=== PATIENT | female | born 1950 | race African-American/Black ===

== ENCOUNTER 2017-02-07 19:11 | Observation (INO) | payer OTHER ==
[~2017-02-07] VITALS: Ht 165.1 cm; Wt 102.0 kg
--- NOTE | ~2017-02-07 | CT71 ---
[facility] A Service of [facility] RADIOLOGY TEXT RESULTS PATIENT: GINA DOAN LOCATION: C3A 308-01 : 51 UNIT #: [id number] AGE: [address]: Jessica Knutson MD SEX: F ORDER DR: [id number] [facility] [address]. [place], [place] [address] [id number] MR#: [id number] Acc #: [id number] NAME: GINA DOAN : 1950 SEX: F STUDY DATE/TIME: 02/07/2017 22:56 UNIT: [facility] ROOM: STUDY DESCRIPTION: CT Head Wo Contrast Attending Physician: Angelo Gross M.D. Referring Physician: Trang Aaron Ordering Physician: Angelo Gross M.D. Primary Care Physician: Trang Aaron MEDICAL IMAGING REPORT This report is preliminary unless electronic signature is present EXAMINATION Noncontrast CT head. DATE 02/07/2017 HISTORY 66-year-old female with complains of dizziness, lightheadedness, unsteady gait and blurred vision since [address] exam was performed with one or more of the following radiation dose reduction techniques: automatic exposure control, adjustment of mA and/or kV according to patient size, and iterative reconstruction. FINDINGS No acute intracranial hemorrhage, mass lesion or mass effect or midline shift is seen and there is no CT evidence of acute or evolving infarct. Britton matter - white matter junction distinction appears preserved. Ventricular configuration is within normal limits. No acute displaced calvarial fracture is seen and the major paranasal sinuses and mastoid air cells appear clear. IMPRESSION Normal noncontrast CT head. Dictated by... Ariane Albarran M.D. THIS IS AN ELECTRONICALLY VERIFIED REPORT Ariane Albarran M.D. at 02/08/2017 9:56 PM [facility]t [facility] A Service of [facility] RADIOLOGY TEXT RESULTS PATIENT: GINA DOAN LOCATION: C3A 308-01 : 51 UNIT #: [id number] AGE: [address]: Jessica Knutson MD SEX: F ORDER DR: TD: 02/08/2017 00:00 JOB #: [id number] MEDICAL IMAGING REPORT Page 1 of 1 COPY
--- NOTE | ~2017-02-07 | EKG ---
PATIENT: GINA DOAN UNIT #: [id number] Ventricular Rate: 55 BPM Atrial Rate: 55 BPM P-R Interval: 136 ms QRS Duration: 96 ms Q-T Interval: 446 ms QTC Calculation(Bezet): 426 ms P [place]: 62 degrees Calculated R [place]: -15 degrees Calculated T [place]: -7 degrees Diagnosis Line: Sinus bradycardia Diagnosis Line: Otherwise normal ECG Diagnosis Line: No previous ECGs available Diagnosis Line: Confirmed by JEN ALLEN MD ([id number]) on 02/08/2017 Diagnosis Line: 7:39:18 PM INTERPRETING MD: TIFFANY MARQUES
--- NOTE | ~2017-02-07 | HP ---
Unit #: [id number] #: [id number] Patient: GINA DOAN [id number] [address] [place], [place] [address] [id number] I MR#: [id number] NAME: GINA DOAN ROOM: [facility] Age: 66 Sex: F Admission Date: 02/08/2017 : 1950 Attending Physician: Marielos Pollard M.D. Referring Physician: Trang Aaron Primary Care Physician: Trang Aaron HISTORY AND PHYSICAL CHIEF COMPLAINT Imbalance. HISTORY This very pleasant 66-year-old female with hypertension, hyperlipidemia, is admitted for imbalance. The patient was in her usual state of health until 2:00 yesterday afternoon. The patient felt "woozy," and she stumbled. She then began to feel imbalance. [place] more fatigued than usual and family thought that she had slurred speech. She denies unilateral weakness, numbness, similar symptoms in the past, or headaches. No recent URI, tinnitus, change in her hearing. She did, however, state that her vision seemed to be a bit blurred. She presented to this emergency department at 7:15 p.m. last evening with stable vital signs. She was given Antivert 25 mg p.o. and a liter of saline without improvement of her symptoms. CTA of the head and neck are negative as is a CT of the brain. The patient's neurologic examination at this time is normal although she does experience subjective imbalance when seated. PAST MEDICAL HISTORY 1. Essential hypertension. 2. Asthma. 3. Hyperlipidemia. 4. Muscle cramps, on Neurontin. 5. Recent admission to [facility] in December for chest pain. The patient reports a stress test was performed. 6. Right total knee replacement. 7. Left foot surgery. 8. Carpal tunnel release. 9. BTL. ALLERGIES Codeine. HOME MEDICATIONS 1. Albuterol as needed. 2. Aspirin 325 mg daily. 3. Vitamin D3. 4. The patient did take one dose of Diflucan yesterday. 5. Neurontin 300 mg t.i.d. 6. Dyazide once a day. 7. Toprol XL 25 mg daily. 8. Crestor 20 mg daily. Unit #: [id number] #: [id number] Patient: GINA DOAN 9. Selenium lotion. 10. Belsomra 10 mg q. h.s. 11. Ultram 50 mg q.4 hours as needed. FAMILY HISTORY TIA and CVA. SOCIAL HISTORY The patient lives with her three grandchildren. She stopped smoking about 47 years ago, seldom drinks alcohol. REVIEW OF SYSTEMS Notable for imbalance, blurred vision, hypertension, asthma, hyperlipidemia, muscle spasms and above mentioned surgeries. All other systems were reviewed and are negative. PHYSICAL EXAMINATION GENERAL APPEARANCE: Very pleasant 66-year-old, moderately obese female, who currently is in no acute distress. VITAL SIGNS: Temperature 97.6, pulse 60, respirations 18, blood pressure 145/80, O2 saturation 99% on room air. HEENT: Eyes PERRLA. Extraocular muscles are intact. TMs are clear. Pharynx is benign. NECK: Supple without adenopathy, thyromegaly or carotid bruits. CHEST: Clear. CARDIAC: Normal S1 and S2 without murmur. ABDOMEN: Bowel sounds are present. No hepatosplenomegaly, tenderness or masses. EXTREMITIES: Without edema. Pedal pulses are present. No ulcers on the feet. NEUROLOGIC EXAM: The patient is awake, alert, oriented. Her speech is fluent. Her cranial nerves are intact. She has +5 out of 5 strength throughout. Normal rapid alternating movements. Normal mockru-ao-rtun. Negative pronator drift. She can sit up without assistance. DIAGNOSTIC STUDIES LABORATORY: Admission labs - hematocrit is 39. Normal white count, platelet count and coags. SMA-12 normal although her GFR is 59.1. Potassium is 3.3, protein 8.5. Urinalysis is negative. IMAGING: CTA of the head and neck negative. CT of the brain is negative. CARDIOVASCULAR: EKG shows a sinus bradycardia, rate 55, left axis deviation. ASSESSMENT 1. Imbalance, rule out inner ear pathology versus central etiology. 2. Essential hypertension. 3. Hyperlipidemia. 4. Stable asthma. 5. Hypokalemia, on Dyazide. PLANS Unit #: [id number] #: [id number] Patient: GINA DOAN 1. MRI of the brain. 2. P.r.n. Ativan as Antivert did not help. 3. Obtain recent records from [facility]. 4. Replace potassium. 5. Further plans depending on MRI scan results. Dictated by Marielos Pollard M.D. AML/df TD: 02/08/2017 05:17 JOB #: [id number] CC: Amanda Stone M.D. HISTORY AND PHYSICAL Page 1 of 1 X Marielos Pollard MD X HISTORY AND PHYSICAL
--- NOTE | ~2017-02-07 | CT17 ---
[facility] A Service of [facility] & [facility] RADIOLOGY TEXT RESULTS PATIENT: GINA DOAN LOCATION: [facility] 308-01 : 51 UNIT #: [id number] AGE: [address]: Jessica Knutson MD SEX: F ORDER DR: [id number] [facility] [address] [place], [place] [address] [id number] I MR#: [id number] Acc #: [id number] NAME: GINA DOAN : 1950 SEX: F STUDY DATE/TIME: 02/07/2017 23:03 UNIT: [address] ROOM: 308 STUDY DESCRIPTION: CT Angio Head Attending Physician: Marielos Pollard M.D. Referring Physician: Trang Aaron Ordering Physician: Angelo Gross M.D. Primary Care Physician: Trang Aaron MEDICAL IMAGING REPORT This report is preliminary unless electronic signature is present EXAM CT angiogram head and neck. HISTORY 66-year-old female complaining of lightheadedness, dizziness, gait unsteadiness, blurred vision since 14:00 today. Preliminary wet reading provided by Dr. Albarran at 0:28 217.-17. COM[address] angiography of the head and neck vessels performed during intravenous administration of 100 mL of Isovue-370. Imaging acquired in the axial plane followed by multiple reconstructed and reformatted images for purpose of 3-D CT angiography of the head and neck vessels. The CT exam was performed with one or more of the following radiation dose reduction techniques: automatic exposure control, adjustment of mA and/or kV according to patient size, and iterative reconstruction. Comparison is made to an earlier head CT from the same day. CT angiogram Neck: The aortic arch branch pattern is normal. Small amount of atherosclerotic vascular calcifications seen but there is no hemodynamically-significant narrowing suspected great vessel origins. Assessment right carotid system shows plaque at the right carotid bifurcation largely noncalcified with mild disease in the distal right common and involving the origin of the right external carotid artery. By NASCET criteria there is essentially 0% diameter stenosis. There is probably hemodynamically-significant narrowing at the origin of the external carotid artery. The siphon appears to be widely patent. Assessment of the left carotid system shows partially calcified plaque at [facility] A Service of [facility] RADIOLOGY TEXT RESULTS PATIENT: GINA DOAN LOCATION: C3A PC 308-01 : 51 UNIT #: [id number] AGE: [address]: Jessica Knutson MD SEX: F ORDER DR: the left carotid bifurcation. This involves the distal common and extends into the proximal external with mild narrowing of the external. By NASCET criteria probably 0% diameter stenosis left internal carotid artery. The left carotid siphons widely patent. The right vertebral artery is not well seen proximally secondary to artifact. It is otherwise patent in the neck and supplies the basilar. The left vertebral artery is also not well seen proximally. It is otherwise patent in the neck and supplies the basilar. There are right is slightly dominant. The region of intracranial circulation shows origin to the right posterior cerebral artery distribution. No intracranial vascular cutoff is suspected. The right side P1 vessel is probably quite hypoplastic with a small infundibulum at its origin. There is a tiny anterior communicating artery present. There is probably a tiny left posterior communicator present. The dural venous sinuses are grossly patent. No definite intracranial aneurysm allowing for the technical limitations CT angiography in general. There is an abnormal appearance to the right side aryepiglottic folds. It is abnormally thickened with a somewhat nodular configuration and this is quite worrisome for neoplastic disease. It should be further evaluated by ENT with direct visualization. The area of interest is about 1.4 x 0.9 cm dimension. Findings called by myself during this dictation to service. Study is not timed to assess adenopathy well in the neck. If more staging information is needed the patient might benefit from PET/CT if the mass appears to be a malignancy. There are degenerative changes in the cervical spine. There is a lesion in the inferior left lobe of the thyroid gland about 1.7 cm dimension low in attenuation. Recommend correlation with a followup thyroid ultrasound for better characterization. IMPRESSION 1. There is a mass-like lesion involving the right side aryepiglottic fold. I would recommend correlation with direct visualization at this time to evaluate for possibility of mucosal mass. 2. By NASCET criteria essentially 0% stenosis at either carotid bifurcation. Both vertebral arteries are patent with the right being slightly dominant. Proximal vertebral arteries are partly obscured by artifact. 3. There is no intracranial vascular cutoff or focal central stenosis. There is origin to the right posterior cerebral artery distribution and I believe the right P1 vessel is very hypoplastic. 4. Lesion in the inferior left lobe of the thyroid gland is nonspecific and should be characterized with an nonemergent thyroid ultrasound. I spoke to the hospitalist within the half hour. [facility] A Service of [facility] RADIOLOGY TEXT RESULTS PATIENT: GINA DOAN LOCATION: C3A 308-01 : 51 UNIT #: [id number] AGE: [address]: Jessica Knutson MD SEX: F ORDER DR: Dictated by... Yumiko Manuel M.D. THIS IS AN ELECTRONICALLY VERIFIED REPORT Yumiko Manuel M.D. at 02/08/2017 9:56 AM OLIVE/chad TD: 02/08/2017 07:38 JOB #: [id number] MEDICAL IMAGING REPORT Page 1 of 1 COPY
--- NOTE | ~2017-02-07 | CR72 ---
[facility] A Service of [facility] RADIOLOGY TEXT RESULTS PATIENT: GINA DOAN LOCATION: C3A 308 : 51 UNIT #: [id number] AGE: [address]: Jessica Knutson MD SEX: F ORDER DR: [id number] [id number] [place], [place] [address] [id number] E MR#: [id number] Acc #: [id number] NAME: GINA DOAN : 1950 SEX: F STUDY DATE/TIME: 02/07/2017 22:23 UNIT: [facility] ROOM: STUDY DESCRIPTION: CR Chest Single View Portable Attending Physician: Angelo Gross M.D. Referring Physician: Trang Aaron Ordering Physician: Angelo Gross M.D. Primary Care Physician: Trang Aaron MEDICAL IMAGING REPORT This report is preliminary unless electronic signature is present EXAMINATION AP portable chest. DATE 02/07/2017 HISTORY 66-year-old female with complaints of dizziness, weakness and shortness of breath today. Hypertension. COMPARISON AP portable chest 12/21/2016. FINDINGS There is a stable borderline cardiac enlargement. The lungs appear clear. Pulmonary vascular distribution is normal. No pleural effusion or pneumothorax. IMPRESSION 1. Stable borderline cardiac enlargement. No acute chest findings. Dictated by... Ariane Albarran M.D. THIS IS AN ELECTRONICALLY VERIFIED REPORT Ariane Albarran M.D. at 02/08/2017 9:56 PM LOCO/emmanuel TD: 02/07/2017 23:52 JOB #: [id number] MEDICAL IMAGING REPORT [facility] A Service of [facility] RADIOLOGY TEXT RESULTS PATIENT: GINA DOAN LOCATION: C3A 308- : 51 UNIT #: [id number] AGE: [address]: Jessica Knutson MD SEX: F ORDER DR: Page 1 of 1 COPY
--- NOTE | ~2017-02-07 | MR17 ---
[facility] A Service of [facility] RADIOLOGY TEXT RESULTS PATIENT: GINA DOAN LOCATION: C3A 308- : 52 UNIT #: [id number] AGE: [address]: Jessica Knutson MD SEX: F ORDER DR: [id number] [facility] [address]. [place], [place] [address] [id number] I MR#: [id number] Acc #: [id number] NAME: GINA DOAN : 1950 SEX: F STUDY DATE/TIME: 02/08/2017 12:24 [facility] RO[facility]: [facility] STUDY DESCRIPTION: MR Brain WWo Contrast Attending Physician: Jessica Knutson M.D. Referring Physician: Trang Aaron Ordering Physician: Marielos Pollard M.D. Primary Care Physician: Trang Aaron MRI CENTER REPORT This report is preliminary unless electronic signature is present. EXAM Brain MRI with and without contrast DATE OF STUDY 02/08/2017 PROCEDURE Routine unenhanced brain MRI COMPARISON Head CT dated 02/07/2017 CLINICAL HISTORY Lightheadedness, dizziness, unsteady gait and blurred vision for 24 hours. FINDINGS There is no MR evidence of acute ischemia or other restricted diffusion. There is no evidence of intracranial hemorrhage or hydrocephalus or extraaxial fluid collection. There are nonspecific white matter changes. Brain is structurally normal; brain parenchymal signal is otherwise normal. Normal flow voids are seen in the cerebral vessels. Bone marrow signal is normal. Postcontrast images show no mass or abnormal enhancement. IMPRESSION Minimal nonspecific white matter change, doubtful clinical significance. Otherwise normal brain MRI with and without contrast. Dictated by... Cornel Dubon M.D. THIS IS AN ELECTRONICALLY VERIFIED REPORT Cornel Dubon M.D. at 02/09/2017 11:49 AM [facility] A Service of [facility] RADIOLOGY TEXT RESULTS PATIENT: GINA DOAN LOCATION: [facility] 308-01 : 51 UNIT #: [id number] AGE: [address]: Jessica Knutson MD SEX: F ORDER DR: BONNIE/alcon TD: 02/08/2017 15:18 JOB #: [id number] MRI CENTER REPORT Page 1 of 1 COPY
--- NOTE | ~2017-02-07 | DS ---
Unit #: [id number] #: [id number] Patient: GINA DOAN [id number] [address] [place], [place] [address] [id number] I MR#: [id number] NAME: GINA DOAN ROOM: [facility] Age: 66 Sex: F Admission Date: 02/08/2017 : 1950 Discharge Date: 02/08/2017 Attending Physician: Jessica Knutson M.D. Referring Physician: Trang Aaron Primary Care Physician: Trang Aaron DISCHARGE SUMMARY PRIMARY CARE PROVIDER Dr. Stone PRINCIPAL DIAGNOSES 1. Acute labyrinthitis. 2. Allergic rhinitis with associated serous effusion of the right ear. 3. Epiglottic mass. 4. Asymptomatic bradycardia with heart rate in the high 50s. 5. Hypertension. 6. Hyperglycemia with pending hemoglobin A1c. 7. Peripheral neuropathy. 8. Insomnia. 9. Gastroesophageal reflux disease. 10. Hyperlipidemia. 11. Obesity. 12. Left thyroid nodule. CONSULTANTS None. PROCEDURES 1. MRI of the brain with chronic ischemic changes of the white matter, no other acute findings. 2. Chest x-ray on February 07, 2017, with mild cardiomegaly, no other acute findings. 3. CT of the head without contrast on February 07, 2017, which was normal. 4. CT angiogram of head and neck on February 07, 2017, with a mass-like lesion involving the right side of the aryepiglottic fold. NASCET criteria was 0% stenosis at either carotid bifurcation. Vertebral arteries are patent. Right is mildly predominant. No intracranial vascular cutoff or focal central stenosis. Lesion in the inferior left lobe of the thyroid gland is nonspecific. CLINICAL HISTORY/HOSPITAL COURSE Ms. Doan is a very nice 66-year-old -[place] female who presents to the emergency department with some lightheadedness and imbalance. Please refer to H and P for further details. CT scan of the head was unremarkable in the emergency department. The patient was subsequently placed in observation to rule out TIA. The patient underwent CT angiogram of the head and neck which was negative with the exception of an epiglottic mass noted. Please refer below. MRI of the brain was done today and was also unremarkable. The patient describes more wooziness and imbalance when she goes to the right. Ear Unit #: [id number] #: [id number] Patient: GINA DOAN examination reveals a lot of serous fluid behind the ear and I suspect this is the culprit. I am going to place her on some Flonase as an outpatient. In regards to patient's epiglottic mass, this was discussed with Dr. Zhong. He is going to perform laryngoscopy on an outpatient basis tomorrow at his [facility] office. This has all been discussed with the patient and she is agreeable. He will also further evaluate her thyroid nodule at that time. I will get a TSH off blood in lab prior to discharge. The patient's other chronic conditions remain stable. She will be discharged home later today. I will note, she was mildly hyperglycemic and hemoglobin A1c is pending. DISCHARGE CONDITION Stable. DISCHARGE STATUS Discharge to home. DISCHARGE MEDICATIONS 1. ProAir RespiClick two puffs four times daily p.r.n. for shortness of breath. 2. Advair 100/50, one puff b.i.d. 3. Gabapentin 300 mg t.i.d. 4. Belsomra 10 mg each evening. 5. Metoprolol succinate 25 mg daily. 6. Dyazide 37.5/25 mg, one daily. 7. Crestor 20 mg daily. 8. Aspirin 325 mg daily. 9. Tramadol 50 mg p.o. q.4 hours p.r.n. for pain. 10. Aciphex 20 mg p.o. daily p.r.n. for acid reflux. 11. Vitamin D3, one tablet daily. 12. Selenium sulfide 2% topical cream to be used daily. 13. Flonase one spray per nostril daily. DISCHARGE INSTRUCTIONS The patient was instructed to follow a heart healthy diet. She can increase her activity as tolerated. FOLLOWUP The patient will follow up with Dr. Austin Zhong tomorrow at his [facility] office, address [address] [facility], at 7:30 tomorrow morning. The patient will follow up with her primary care provider, Dr. Stone, in one week. Dictated by... Jessica Knutson M.D. NAJMA/renzo TD: 02/09/2017 09:34 JOB #: [id number] Unit #: [id number] #: [id number] Patient: GINA DOAN DISCHARGE SUMMARY Page 1 of 1 X Jessica Knutson MD X DISCHARGE SUMMARY
[2017-02-07 20:13] LABS: BASOPHIL% 0.2 % (0-2.5); EOSINOPHIL# 0.3 X10e3 (0-0.7); EOSINOPHIL% 3.5 % (0.0-7.0); HEMOGLOBIN 12.7 gm/dL (12.0-16.0); LYMPHOCYTE# 2.4 X10e3 (1.0-3.5); LYMPHOCYTE% 33.6 % (17.0-45.0); MEAN CELL VOLUME 87.7 FL (83-96); MEAN CORPUSCULAR HEMOGLOBIN 28.6 PG (28-34); MEAN CORPUSCULAR HGB CONC 32.5 g/dL (30-36); MEAN PLATELET VOLUME 9.2 FL (6.5-11.5); MONOCYTE# 0.9 X10e3 (0-1.0); MONOCYTE% 12.4 % (3.0-12.0); NEUTROPHIL# 3.7 X10e3 (1.5-7.1); NEUTROPHIL% 50.3 % (40-75); PLATELET COUNT 250 X10e3 (140-420); RED BLOOD COUNT 4.45 X10e (3.90-5.30); RED CELL DISTRIBUTION WIDTH 15.1 % (11.0-15.5); WHITE BLOOD COUNT 7.3 X10e3 (4.0-10.5)
[2017-02-07 20:16] LABS: DIFF IND NO
[2017-02-07 20:35] LABS: ALBUMIN SERUM 4.2 g/dL (3.5-5.0); BILIRUBIN, DIRECT 0.1 mg/dL (0.0-0.2); BILIRUBIN,INDIRECT 0.4 mg/dL (0.0-0.9); BILIRUBIN,TOTAL 0.5 mg/dL (0.2-2.0); CALCIUM SERUM 9.3 mg/dL (8.4-10.2); GLOM FILT RATE Estimated 59.1 mL/min (>60); POTASSIUM 3.3 mmol/L (3.5-5.1); PROTEIN TOTAL SERUM 8.5 g/dL (6.0-8.3)
[2017-02-07 21:50] LABS: URINE SOURCE CLEAN CATCH
[2017-02-07 21:56] LABS: URINE APPEARANCE CLEAR; URINE BILIRUBIN NEG (NEG); URINE BLOOD NEG (NEG); URINE COLOR YELLOW; URINE GLUCOSE NEG (NEG); URINE KETONE NEG (NEG); URINE LEUKOCYTE ESTERASE NEG (NEG); URINE NITRATE NEG (NEG); URINE PH 6.5 (5-8); URINE PROTEIN NEG (NEG); URINE SPECIFIC GRAVITY 1.008 (1.003-1.035); URINE UROBILINOGEN 0.2 MG/DL (NEG)
[2017-02-07 22:01] LABS: CULTURE INDICATED? NO
[2017-02-07 22:11] LABS: POC - CKMB 1.2 ng/mL (0.0-7.9); POC - TROPONIN <0.05 ng/mL (<=0.05)
[2017-02-08] MEDS ORDERED: TRAMADOL HCL50 M1 PO (05:14)
[2017-02-08] MEDS ORDERED: COATED ASPIRIN325 M1 PO (05:14)
[2017-02-08] MEDS ORDERED: ADVAIR 100-501 EAC1 INH (05:15)
[2017-02-08] MEDS ORDERED: VITAMIN D-32000 UNIT PO (05:15)
[2017-02-08] MEDS ORDERED: GABAPENTIN300 M2 PO (05:16)
[2017-02-08] MEDS ORDERED: HYDROCHLOROTHIA25 MG PO (05:17)
[2017-02-08] MEDS ORDERED: TRIAMTERENE-HC1 EAC1 PO ×2 (05:18→15:58)
[2017-02-08] MEDS ORDERED: METOPROLOL SUCC25 MG PO (05:18)
[2017-02-08] MEDS ORDERED: ACIPHEX20 MG PO (05:18)
[2017-02-08] MEDS ORDERED: ROSUVASTATIN CA20 MG PO (05:19)
[2017-02-08] MEDS ORDERED: BELSOMRA10 MG PO (05:21)
[2017-02-08] MEDS ORDERED: SELENIUM SULFIDE TOP (05:21)
[2017-02-08] MEDS ORDERED: PROAIR RESPICL90 MCG INH (05:22)
[2017-02-08 05:25] LABS: BASOPHIL# 0.1 X10e3 (0-0.3); BASOPHIL% 1.2 % (0-2.5); DIFF IND NO; EOSINOPHIL# 0.3 X10e3 (0-0.7); HEMATOCRIT 36.4 % (35.0-45.0); HEMOGLOBIN 11.9 gm/dL (12.0-16.0); LYMPHOCYTE# 2.4 X10e3 (1.0-3.5); LYMPHOCYTE% 35.9 % (17.0-45.0); MEAN CELL VOLUME 87.8 FL (83-96); MEAN CORPUSCULAR HEMOGLOBIN 28.6 PG (28-34); MEAN CORPUSCULAR HGB CONC 32.6 g/dL (30-36); MEAN PLATELET VOLUME 9.2 FL (6.5-11.5); MONOCYTE# 0.8 X10e3 (0-1.0); MONOCYTE% 11.7 % (3.0-12.0); NEUTROPHIL# 3.2 X10e3 (1.5-7.1); NEUTROPHIL% 46.2 % (40-75); PLATELET COUNT 213 X10e3 (140-420); RED BLOOD COUNT 4.15 X10e (3.90-5.30); RED CELL DISTRIBUTION WIDTH 15.2 % (11.0-15.5); WHITE BLOOD COUNT 6.8 X10e3 (4.0-10.5)
[2017-02-08 05:41] LABS: INR 0.9; PROTHROMBIN TIME (PATIENT) 10.2 SECONDS (10.0-11.7)
[2017-02-08 06:14] LABS: BUN/CREATININE RATIO 13.33; CREATININE SERUM 0.9 mg/dL (0.6-1.4); GLOM FILT RATE Estimated 77.8 mL/min (>60); POTASSIUM 3.7 mmol/L (3.5-5.1)
[2017-02-08] MEDS ORDERED: FLONASE 0.05% N16 G1 (16:02)
== END 2017-02-08 18:19 | disposition home or self-care (01) ==
LOC: CED 19:11 → CEDOF 02-08 01:30 → C3A PCU 02-08 01:36 → CED 02-08 01:36 → CEDOF 02-08 01:36 → C3A PCU 02-08 02:44 → CEDOF 02-08 02:44 → C3A PCU 02-08 07:51
PROVIDERS: Emergency Medicine; Internal Medicine
DX: H83.09 Labyrinthitis, unspecified ear (principal); H93.8X1 Other specified disorders of right ear; J38.7 Other diseases of larynx; I10 Essential (primary) hypertension; J45.909 Unspecified asthma, uncomplicated; R00.1 Bradycardia, unspecified; R73.9 Hyperglycemia, unspecified; G62.9 Polyneuropathy, unspecified; G47.00 Insomnia, unspecified; K21.9 Gastro-esophageal reflux disease without esophagitis; E66.9 Obesity, unspecified; E04.1 Nontoxic single thyroid nodule; E87.6 Hypokalemia; Z68.37 Body mass index [BMI] 37.0-37.9, adult; Z87.891 Personal history of nicotine dependence; Z88.5 Allergy status to narcotic agent; Z79.51 Long term (current) use of inhaled steroids; Z79.82 Long term (current) use of aspirin; Z79.899 Other long term (current) drug therapy; Z96.651 Presence of right artificial knee joint; Z98.51 Tubal ligation status; Z98.890 Other specified postprocedural states
CPT/HCPCS: 36415; 70450; 70496; 70498; 70553; 71010; 80048; 80076; 81003; 82550; 82553; 83036; 83735; 84443; 84484; 85025; 85610; 85730; 93005; 94760; 96360; 96361; 96374; 99285; A9577; G0378; J2060; Q9967